=== PATIENT | male | born 1960 | race Caucasian/White ===

== ENCOUNTER 2017-04-22 19:37 | Emergency (ER) | payer BC, MEDICAID ==
[2017-04-22 19:42] VITALS: BP 117/75; PULSE 94; RESP 18; TEMP 98.5
[2017-04-22] MEDS ORDERED: DIPH,PERTUS(ACELL)TETVAC-LF 0.5 ML VIAL IM ONE (19:54)
--- NOTE | 2017-04-22 20:17 | ED ---
General Adult HPI - General Chief complaint: Wound/Laceration Stated complaint: R leg laceration Time Seen by Provider: 04/22/17 19:45 Source: patient, RN notes reviewed Mode of arrival: ambulatory Limitations: no limitations - History of Present Illness Initial comments: 57-year-old male presents emergency Department chief complaint of laceration to the right leg. Patient states he cut it on a cutting board at work in his yard today patient states that he noticed the bleeding and the wounds without that he should be seen. Patient states his pain is not tender to touch the area. She is not taking his tetanus. Patient denies any other pain or injuries at this time.Patient denies any recent fever, chills, shortness of breath, chest pain, back pain, abdominal pain, nausea vomiting, numbness or tingling, dysuria or hematuria, constipation or diarrhea, headaches or visual changes, or any other current symptoms. - Related Data Allergies Allergy/AdvReac Type Severity Reaction Status Date / Time No Known Allergies Allergy Verified 04/22/17 19:42 Review of Systems ROS Statement: Those systems with pertinent positive or pertinent negative responses have been documented in the HPI. ROS Other: All systems not noted in ROS Statement are negative. Past Medical History Past Medical History: No Reported History History of Any Multi-Drug Resistant Organisms: None Reported Past Surgical History: Hernia Repair Past Psychological History: No Psychological Hx Reported Smoking Status: Never smoker Past Alcohol Use History: Occasional Past Drug Use History: None Reported General Exam - General Exam Comments Initial Comments: General: The patient is awake and alert, in no distress, and does not appear acutely ill. Neck: The neck is supple, there is no tenderness. Cardiovascular: There is a regular rate and rhythm. No murmur, rub or gallop is appreciated. Respiratory: Lungs are clear to auscultation, respirations are non-labored, breath sounds are equal. No wheezes, stridor, rales, or rhonchi. Musculoskeletal: Sensation intact. Patient has a 4 cm anterior right acsota laceration. Full range motion of right ankle and right knee. 5 out of 5 muscle strength testing throughout. Neurological: CN II-XII intact, There are no obvious motor or sensory deficits. Coordination appears grossly intact. Speech is normal. Skin: Skin is warm and dry and no rashes or lesions are noted. Psychiatric: Normal mood and affect. Limitations: no limitations Course Vital Signs 04/22/17 19:39 Temperature 98.5 F Pulse Rate 94 Respiratory 18 Rate Blood Pressure 117/75 O2 Sat by Pulse 98 Oximetry Procedures - Procedures Initial comment: The skin was anesthetized with 1% lidocaine. The laceration was then cleansed with Betadine and irrigated with normal saline. The wound was inspected, and there was no evidence of injury to deep structures. No foreign body was noted in the wound. A total of 7 skin sutures were placed utilizing 5-0 nylon to a right acosta laceration that is 4 cm. Medical Decision Making - Medical Decision Making 57-year-old male presents for right leg laceration. We did discuss an x-ray of the chest patient states he did not need. We discussed do not know if there is a foreign body at that time but back in the stated that he understood. We did update the his tetanus. Patient went suture care. We discussed return parameters and follow-up and all questions. He stated they understood and is in agreement plan. This time he will be discharged home. Disposition Clinical Impression: Laceration of right lower leg Disposition: HOME SELF-CARE Condition: Stable Instructions: Laceration (ED), Care For Your Stitches (ED) Additional Instructions: Please use medication as discussed. Please follow up with family doctor if symptoms have not improved over the next two days. Please return to the emergency room if your symptoms increase or worsen or for any other concerns. Please return to the emergency room in 8-10 days to have sutures removed. Please leave wound covered for the first 24-48 hours and then leave open to air after that time. Please use clean soap and water to clean the suture area to prevent scabbing over the top of your sutures. Please watch for any signs of infection which may include but not limited to increased pain, swelling, redness , fever or chills. Please return to the emergency room if any signs of infection do occur. Please return to the emergency room for any other concerns or complications. Referrals: Reji Serrano MD [Primary Care Provider] - 1-2 days Time of Disposition: 20:17
== END 2017-04-22 20:22 | disposition home or self-care (01) ==
LOC: EC 19:37
DX: S81.811A Laceration without foreign body, right lower leg, initial encounter (principal); Z23 Encounter for immunization; W26.8XXA Contact with other sharp object(s), not elsewhere classified, initial encounter; Y99.0 Civilian activity done for income or pay; Y92.69 Other specified industrial and construction area as the place of occurrence of the external cause
CPT/HCPCS: 12002; 90471; 90715; 99282

== ENCOUNTER 2017-10-29 14:18 | Emergency (ER) | payer MEDICAID ==
[2017-10-29 14:51] VITALS: BP 130/84; PULSE 87; RESP 16; TEMP 98.4
--- NOTE | 2017-10-29 15:06 | ED ---
General Adult HPI - General Chief complaint: Wound/Laceration Stated complaint: Finger /Lac Time Seen by Provider: 10/29/17 14:58 Source: patient, RN notes reviewed Mode of arrival: ambulatory Limitations: no limitations - History of Present Illness Initial comments: 57-year-old male presents to the emergency Department chief complaint of laceration between the fourth and fifth digits on left hand. He states he cut it on a piece of metal earlier today. Up-to-date on his tetanus. He states that he was concerned due to the severity of the cut so he thought he should be seen. He denies any nausea or vomiting with this. He denies any other injuries. He was concerned due to his symptoms without that he should be evaluated.Patient denies any recent fever, chills, shortness of breath, chest pain, back pain, abdominal pain, nausea vomiting, numbness or tingling, dysuria or hematuria, constipation or diarrhea, headaches or visual changes, or any other current symptoms. - Related Data Previous Rx's Medication Instructions Recorded Cephalexin [Keflex] 500 mg PO Q6HR #40 cap 10/29/17 Allergies Allergy/AdvReac Type Severity Reaction Status Date / Time No Known Allergies Allergy Verified 10/29/17 14:50 Review of Systems ROS Statement: Those systems with pertinent positive or pertinent negative responses have been documented in the HPI. ROS Other: All systems not noted in ROS Statement are negative. Past Medical History Past Medical History: No Reported History History of Any Multi-Drug Resistant Organisms: None Reported Past Surgical History: Hernia Repair Past Psychological History: No Psychological Hx Reported Smoking Status: Never smoker Past Alcohol Use History: Occasional Past Drug Use History: None Reported General Exam - General Exam Comments Initial Comments: General: The patient is awake and alert, in no distress, and does not appear acutely ill. Neck: The neck is supple, there is no tenderness. Cardiovascular: There is a regular rate and rhythm. No murmur, rub or gallop is appreciated. Respiratory: Lungs are clear to auscultation, respirations are non-labored, breath sounds are equal. No wheezes, stridor, rales, or rhonchi. Musculoskeletal: Sensation intact with 2+ pulses throughout the left upper x- ray. Full range of motion of left wrist and left hand. Patient does appear to 1.5 cm laceration between the fourth and fifth in the web space. Full range of motion sensation intact. Neurological: CN II-XII intact, There are no obvious motor or sensory deficits. Coordination appears grossly intact. Speech is normal. Skin: Skin is warm and dry and no rashes or lesions are noted. Psychiatric: Normal mood and affect. Limitations: no limitations Course Vital Signs 10/29/17 14:48 Temperature 98.4 F Pulse Rate 87 Respiratory 16 Rate Blood Pressure 130/84 O2 Sat by Pulse 98 Oximetry Procedures - Procedures Initial comment: The skin was anesthetized with 1% lidocaine. The laceration was then cleansed with Betadine and irrigated with normal saline. The wound was inspected, and there was no evidence of injury to deep structures. No foreign body was noted in the wound. A total of 4 skin sutures were placed utilizing 5-0 nylon to a left hand laceration that is 1.5 cm in length Medical Decision Making - Medical Decision Making 57-year-old male presents emergency Department chief complaint of left hand laceration. We did discuss the foreign body. We did discuss it may not be related to dislocation could be we discussed risk of infection we discussed care we discussed possible outcomes. Patient stated he understood. This time we discussed. Suture care we discussed follow-up return parameters all questions. Patient stated the [employer] is given this plan. This time he will be discharged. - Radiology Data Radiology results: report reviewed, image reviewed Disposition Clinical Impression: Laceration of left hand Disposition: HOME SELF-CARE Condition: Stable Instructions: Care For Your Stitches (ED), Laceration (ED) Additional Instructions: Please use medication as discussed. Please follow up with family doctor if symptoms have not improved over the next two days. Please return to the emergency room if your symptoms increase or worsen or for any other concerns. Please return to the emergency room in 8-10 days to have sutures removed. Please leave wound covered for the first 24-48 hours and then leave open to air after that time. Please use clean soap and water to clean the suture area to prevent scabbing over the top of your sutures. Please watch for any signs of infection which may include but not limited to increased pain, swelling, redness , fever or chills. Please return to the emergency room if any signs of infection do occur. Please return to the emergency room for any other concerns or complications. Prescriptions: Cephalexin [Keflex] 500 mg PO Q6HR #40 cap Referrals: Reji Serrano MD [Primary Care Provider] - 1-2 days Time of Disposition: 15:32
--- NOTE | 2017-10-29 15:20 | XR ---
EXAMINATION TYPE: XR hand complete LT DATE OF EXAM: 10/29/2017 COMPARISON: NONE HISTORY: 57-year-old male laceration between the fourth and fifth digits from metal object, pain TECHNIQUE: 3 views FINDINGS: There is soft tissue injury at the fourth webspace. Tiny 3 mm linear density projecting at the ulnar sided soft tissues at the base of the little finger. Degenerative changes at the first MCP and first IP joints. Bony irregularity along the dorsal carpus could represent sequela of remote triquetral fra cture. Additional scattered osteophytic changes such as at the second DIP joint. No acute fracture, s ubluxation, or dislocation. Some degenerative spurring also seen at the distal radial ulnar joint. IMPRESSION: 1. Soft tissue injury to the fourth webspace. 2. Tiny 3 mm linear density projecting along the ulnar side soft tissues at the base of the little fi nger. This could represent external debris or tiny retained foreign body material. 3. 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 No acute osseous abnormality seen.
== END 2017-10-29 15:39 | disposition home or self-care (01) ==
LOC: EC 14:18
DX: S61.412A Laceration without foreign body of left hand, initial encounter (principal); W45.8XXA Other foreign body or object entering through skin, initial encounter; Y92.009 Unspecified place in unspecified non-institutional (private) residence as the place of occurrence of the external cause
CPT/HCPCS: 12001; 99283

== ENCOUNTER → 2017-12-29 | Outpatient (CLI) | payer MEDICAID ==
--- NOTE | 2017-12-29 09:25 | XR ---
EXAMINATION TYPE: XR lumbar spine 2 or 3V DATE OF EXAM: 12/29/2017 COMPARISON: None HISTORY: 57-year-old male right-sided sciatica and low back pain TECHNIQUE: 3 views FINDINGS: Mild degenerative disc disease throughout with mild endplate spondylosis. Facet arthropathy mid to lo wer lumbar spine with grade 1 anterolisthesis at L4-L5. Vertebral body heights are preserved and alig nment is maintained. 5 lumbar type vertebral bodies. IMPRESSION: 1. No vertebral compression collapse. 2. Facet arthropathy mid to lower lumbar spine with grade 1 anterolisthesis L4-L5. 3. Mild multilevel degenerative disc disease and endplate spondylosis.
== END | disposition home or self-care (01) ==
LOC: RADXRMAIN 08:42
PROVIDERS: ATTEND Family Medicine
DX: M43.16 Spondylolisthesis, lumbar region (principal); M51.16 Intervertebral disc disorders with radiculopathy, lumbar region; M47.26 Other spondylosis with radiculopathy, lumbar region; M46.96 Unspecified inflammatory spondylopathy, lumbar region
CPT/HCPCS: 72100

== ENCOUNTER 2018-01-13 11:30 | Day surgery (SDC) | payer MEDICAID ==
[2018-01-07 10:07] VITALS: BMI 26.2
[~2018-01-13 11:30] MED LIST: HEPARIN SODIUM,PORCINE 5,000 UNIT/ML 1 ML VIAL SQ ONE; LIDOCAINE 1% 20 ML VIAL (10MG/ML) FOR IV START INTRADERMA PRN; MIDAZOLAM 2 MG/2 ML VIAL IV PRN
[2018-01-13 12:24] VITALS: TEMP 97.6
[2018-01-13] MEDS: LACTATED RINGERS 1,000 ML IV SCH (12:37)
[2018-01-13] MEDS: ceFAZolin IN SWFI 2 GM/20 ML SYRINGE IVP ONE ×2 (13:33→13:40)
[2018-01-13] MEDS ORDERED: LIDOCAINE 1% INJ 10MG/ML (20 ML MDV) ONE (13:40)
[2018-01-13] MEDS ORDERED: LACTATED RINGERS 1,000 ML IV ONE (13:40)
[2018-01-13] MEDS ORDERED: PROPOFOL 10 MG/ML 20 ML VIAL IV ONE (13:40)
[2018-01-13] MEDS ORDERED: MIDAZOLAM 2 MG/2 ML VIAL ONE (13:40)
[2018-01-13] MEDS ORDERED: NEOSTIGMINE 1 MG/ML 10 ML VIAL ONE (13:40)
[2018-01-13] MEDS ORDERED: PHENYLEPHRINE-0.9% NACL SYG 1 MG/10 ML SYRINGE ONE (13:40)
[2018-01-13] MEDS ORDERED: ROCURONIUM BROMIDE 10 MG/ML 10 ML VIAL IV ONE (13:40)
[2018-01-13] MEDS ORDERED: fentaNYL (PF) 50 MCG/ML 2 ML AMP ONE (13:40)
[2018-01-13] MEDS ORDERED: ONDANSETRON 4 MG/2 ML VIAL ONE (13:40)
[2018-01-13] MEDS ORDERED: DEXAMETHASONE SOD PHOS (MDV) 100 MG/10 ML VIAL ONE (13:40)
[2018-01-13] MEDS ORDERED: SUCCINYLCHOLINE CHLORIDE 100 MG/5 ML SYR IV ONE (13:40)
[2018-01-13] MEDS ORDERED: GLYCOPYRROLATE 0.2 MG/ML 2 ML VIAL ONE (13:40)
[2018-01-13] MEDS ORDERED: KETOROLAC 30 MG/ML 1 ML VIAL ONE (13:40)
[2018-01-13] MEDS ORDERED: LIDOCAINE 1%-EPI 1:100,000 30 ML VIAL SQ ONE ×2 (13:59)
[2018-01-13] MEDS ORDERED: BUPIVACAINE (PF) 0.25% 30 ML VIAL SQ ONE ×2 (13:59)
--- NOTE | 2018-01-13 15:44 | P.OP ---
Date of Procedure: 01/13/18 Preoperative Diagnosis: incarcerated left inguinal hernia Postoperative Diagnosis: same Procedure(s) Performed: Robotic assisted laparoscopic repair of incarcerated left inguinal hernia Anesthesia: AIDEN Surgeon: Reji Kohler Estimated Blood Loss (ml): 5 Urine output (ml): 250 Pathology: none sent Condition: stable Disposition: PACU Indications for Procedure: This 57-year-old male presented in my office with a incarcerated left inguinal hernia he discovers benefits alternatives to robotic-assisted laparoscopic left inguinal hernia repair risks including bleeding infection surrounding tissue need further operation and recurrence he stated he understood agreed and consented informed consent was obtained Description of Procedure: Patient is brought to the operative suite remained in the supine position underwent general endotracheal anesthesia per Department of anesthesia he was then prepped and draped in the usual sterile fashion timeout was performed correct patient correct procedure correct site was verified. A 2 cm incision was made just. The umbilicus and using a 12 mm Visiport the abdomen was entered under direct visualization and insufflated no injury was noted to 8 mm ports were placed 11 cm lateral on either side the robot was docked after the patient was placed in Trendelenburg. There was a large left sided inguinal hernia containing colon which appeared to be incarcerated. This was reduced. The peritoneum was taken down and there was both a direct and indirect component noted. Medially to the pubis, inferiorly to the psoas and laterally out far enough for the mesh to fit. The sac was then reduced both indirect and direct components. The Progrip mesh was then placed. The peritoneum was sutured back in place using 2-0 Strafix suture. The robot was then undocked the suture was removed and the 12 mm port site was closed with 0 Vicryl in a [id number] fashion with the aid of a Gopal-Ira suture passer. Skin was then closed with 4-0 Vicryl in a subcuticular fashion patient tolerated the procedure well there is no apparent complications Plan - Discharge Summary New Discharge Prescriptions: New Docusate [Colace] 100 mg PO DAILY #10 capsule HYDROcodone/APAP 5-325MG [[place] 5-325] 1 tab PO Q6HR PRN #30 tab PRN Reason: Pain No Action Methocarbamol [Robaxin] 1,000 mg PO QID PRN PRN Reason: Muscle Pain Discharge Medication List Methocarbamol [Robaxin] 1,000 mg PO QID PRN 01/07/18 [History] Docusate [Colace] 100 mg PO DAILY #10 capsule 01/13/18 [Rx] HYDROcodone/APAP 5-325MG [[place] 5-325] 1 tab PO Q6HR PRN #30 tab 01/13/18 [Rx] Follow up Appointment(s)/Referral(s): Reji Kohler DO [Doctor of Osteopathic Medicine] - 1 Week Activity/Diet/Wound Care/Special Instructions: regular diet Discharge Disposition: HOME SELF-CARE
[2018-01-13 15:47] VITALS: RESP 16
[2018-01-13 16:37] VITALS: PULSE 67
[2018-01-13 16:44] VITALS: BP 126/79
== END 2018-01-13 17:12 | disposition home or self-care (01) ==
LOC: OR 11:30
PROVIDERS: ATTEND Student in an Organized Health Care Education/Training Program
DX: K40.30 Unilateral inguinal hernia, with obstruction, without gangrene, not specified as recurrent (principal); F17.290 Nicotine dependence, other tobacco product, uncomplicated; Z79.899 Other long term (current) drug therapy
CPT/HCPCS: 49507; S2900

== ENCOUNTER → 2019-09-28 | Outpatient (CLI) | payer MEDICAID ==
--- NOTE | 2019-09-28 10:01 | XR ---
EXAMINATION TYPE: XR chest 2V DATE OF EXAM: 09/28/2019 COMPARISON: NONE HISTORY: Cough and congestion. TECHNIQUE: Frontal and lateral views of the chest are obtained. FINDINGS: There is no focal air space opacity, pleural effusion, or pneumothorax seen. The cardiac silhouette size is within normal limits. Multilevel spurring in the thoracic spine. IMPRESSION: No suspicious acute pulmonary process.
== END | disposition home or self-care (01) ==
LOC: RADXRMAIN 09:45
PROVIDERS: ATTEND Physician Assistant
DX: J20.9 Acute bronchitis, unspecified (principal)
CPT/HCPCS: 71046